=== PATIENT | male | born 1960 | race Hispanic/Latino ===

== ENCOUNTER 2017-07-07 16:15 | Emergency (ER) | payer OTHER, SELFPAY ==
[~2017-07-07 16:15] MED LIST: BUSP15 PO; LEVO500T2 PO; LISI-613 PO; MULT-603 PO; PRAV20TA4 PO; TRAZ-144 PO
[2017-07-07 17:20] LABS: BASOPHILS % (AUTO) 0.4 % (0.0-5.0); LYMPHOCYTES % (AUTO) 22.2 % (21.0-51.0); MEAN CORPUSCULAR HEMOGLOBIN 32.4 pg (27.0-33.0); MEAN CORPUSCULAR HGB CONC 34.8 g/dL (32.0-36.0); MEAN CORPUSCULAR VOLUME 93.1 fL (79-99); MONOCYTES % (AUTO) 10.1 % (3.0-13.0); NEUTROPHILS % (AUTO) 64.3 % (40.0-77.0); PLATELET COUNT (AUTO) 202 K/uL (130-400); RED BLOOD CELL COUNT(AUTO) 4.51 MIL/uL (4.50-6.20); RED CELL DISTRIBUTION WIDTH 14.1 % (11.0-15.5); WHITE BLOOD COUNT (AUTO) 9.3 K/uL (4.8-10.8)
[2017-07-07 17:31] LABS: POTASSIUM 3.7 mmol/L (3.5-5.1)
[2017-07-07 17:35] LABS: ALBUMIN 3.5 g/dL (3.5-5.0); BILIRUBIN,TOTAL 0.3 mg/dL (0.2-1.0); CRP QUANTITATIVE 3.2 mg/L (0.00-9.0); TOTAL PROTEIN, SERUM 7.5 g/dL (6.0-8.3)
== END 2017-07-07 19:32 | disposition home or self-care (01) ==
LOC: EDH 16:15
DX: L30.9 Dermatitis, unspecified (principal); L03.116 Cellulitis of left lower limb; L03.115 Cellulitis of right lower limb; E78.5 Hyperlipidemia, unspecified; I10 Essential (primary) hypertension; Z88.0 Allergy status to penicillin; Z72.0 Tobacco use
CPT/HCPCS: 36415; 80053; 85025; 86141; 93925; 93970

== ENCOUNTER 2024-12-05 13:42 | Emergency (ER) | payer OTHER ==
[~2024-12-05] VITALS: Ht 177.8 cm; Wt 72.6 kg
[~2024-12-05 13:42] MED LIST changes: -LISI-613 PO; +LISI20TA24 PO; -PRAV20TA4 PO; +PRAV20TA59 PO; -TRAZ-144 PO; +TRAZ-185 PO
--- NOTE | 2024-12-05 13:59 | ERN ---
General Chief Complaint: Lower Extremity Pain/Injury Stated Complaint: RIGHT LEG SWELLING Time Seen by MD: 13:54 History of Present Illness Initial Comments Mr. Tian is a 64-year-old male who presented to the ED via private vehicle with complaints of bilateral leg pain. Patient states that the pain started on Sunday and progressed in severity, it now encompasses entire leg on both sides. He denies trauma to his legs. He states that he was told by his primary care physician that he has venous insufficiency. He states that he had similar episodes in the past twice. He states that he has a chronic history of pedal edema and venous insufficiency in the past. He has a past medical history of diabetes mellitus for which she was on metformin for a while, now in remission. Allergies: Coded Allergies: No Allergy Information Available (Verified Allergy, Unknown, 02/25/16) Penicillins (Unverified Allergy, Unknown, 12/05/24) Uncoded Allergies: PCN (Allergy, Intermediate, 02/25/16) RASH Home Meds Active Scripts Clindamycin HCl (Clindamycin HCl) 75 Mg Capsule, 1 CAP PO TID for Cellulitis for 10 Days, #30 CAP 0 Refills Prov:ARA AQUINO MD 12/05/24 Levofloxacin (Levaquin) 500 Mg Tablet, 500 MG PO DAILY, #5 TAB Prov:EMORY BRANNON MD 02/28/16 Reported Medications Buspirone HCl (Buspar) 15 Mg Tab, 15 MG PO BID, TAB 02/27/16 Multivitamin (Men's Multi-Vitamin) 1 Each Tablet, 1 EACH PO DAILY, TAB 02/27/16 Trazodone HCl (Trazodone HCl) 50 Mg Tablet, 50 MG PO HS, TAB 02/27/16 Pravastatin Sodium (Pravastatin Sodium) 20 Mg Tablet, 20 MG PO HS, TAB 02/27/16 Lisinopril (Lisinopril) 20 Mg Tablet, 20 MG PO DAILY, TAB 02/27/16 ROS Dictation ROS Dictation CONSTITUTIONAL: No chills, no fever, no weakness, no diaphoresis, no malaise. HEAD/FACE: No signs of trauma. EENT: No eye pain, no blurred vision, no tearing, no double vision, no ear pain, no ear discharge, no nose pain, no nasal congestion, no throat pain, no throat swelling, no mouth pain. RESPIRATORY: No cough, no orthopnea, no SOB, no stridor, no wheezing. CARDIOVASCULAR: No chest pain, no edema, no palpitations, no syncope. GASTROINTESTINAL/ABDOMINAL: No abdominal pain, no constipation, no diarrhea, no nausea, no vomiting. GENITOURINARY: No abnormal discharge, no dysuria, no frequent urination, no hematuria. No complaints of pain in the genitals. MUSCULOSKELETAL: No back pain, no gout, no joint pain, no joint swelling, bilateral lower extremity muscle pain, bilateral leg swelling, no muscle stiffness, no neck pain. INTEGUMENTARY: No change in color, no change in hair/nails, no dryness, no lesion, no lumps, no rash. NEUROLOGICAL/PSYCH: No anxiety, not depressed, no emotional problem, no headache, no numbness, no pre-existing deficit, no history of seizures, no tremors, no weakness. HEMATOLOGIC/LYMPHATIC: Not anemic, no history of blood clots, no apparent bleeding, no bruising, glands not swollen. All Systems Negative, Except as Noted. Physical Exam Physical Exam Dictation Physical Exam Dictation VITAL SIGNS: Reviewed. GENERAL APPEARANCE: Alert, oriented x3 HEAD AND FACE: Non-traumatic. EYES: PERRL, pink conjunctivas, eyelid no trauma, anterior chamber clear. EARS: Pinnas intact and no signs of trauma or erythema. Ear canals clear and no discharge. TMs no erythema. NOSE: No discharge, no bleeding. OROPHARYNX: Mouth normal, teeth no caries, tongue pink. Pharynx clear, no erythema. Tonsils no exudates, no abscesses noted. Mucous membrane moist. NECK: Supple, non-tender, no thyromegaly, no masses, no JVD, no bruits. BREAST: Deferred. CHEST: No tenderness, no crepitus, no paradoxical movement, no retractions. LUNGS: Clear, well-ventilated, symmetric, no rales, no wheezing, no rhonchi, no stridor, good breath sounds bilaterally. HEART: Regular rate, regular rhythm, no murmur, no gallops. VASCULAR: No peripheral edema. ABDOMEN: Soft, positive bowel sounds, nondistended, no guarding, nontender, no rebound, no masses no hepatomegaly, no splenomegaly, no Simms's sign, no hernias. RECTAL: Deferred. GENITAL: Deferred. NEUROLOGICAL: Normal speech, gross motor function intact, gross sensory function intact. MUSCULOSKELETAL: Neck nontender, full range of motion, back nontender, full range of motion. EXTREMITIES: Tender, edematous, erythematous, and scaly bilateral lower extremities with local rise in temperature, full range of motion. SKIN: Color pink, dry, no turgor, no rash, no lacerations, no abrasions, no contusions. LYMPHATICS: Deferred. Results Laboratory and Microbiology Lab and Micro Result Laboratory Tests Test 12/05/24 15:18 White Blood Count 10.8 K/uL (4.8-10.8) Red Blood Count 4.43 MIL/uL (4.50-6.20) L Hemoglobin 14.3 g/dL (14.0-18.0) Hematocrit 42.3 % (42-54) Mean Corpuscular Volume 95.5 fL (79-99) Mean Corpuscular Hemoglobin 32.3 pg (27.0-33.0) Mean Corpuscular Hemoglobin Concent 33.8 g/dL (32.0-36.0) Red Cell Distribution Width 13.3 % (11.0-15.5) Platelet Count 186 K/uL (130-400) Mean Platelet Volume 9.3 fL (7.5-10.5) Immature Granulocyte % (Auto) 0.5 % (0-1) Neutrophils (%) (Auto) 73.8 % (40.0-77.0) Lymphocytes (%) (Auto) 12.5 % (21.0-51.0) L Monocytes (%) (Auto) 7.4 % (3.0-13.0) Eosinophils (%) (Auto) 5.2 % (0.0-8.0) Basophils (%) (Auto) 0.6 % (0.0-5.0) Neutrophils # (Auto) 8.0 K/uL (1.8-7.7) H Lymphocytes # (Auto) 1.4 K/uL (1.0-4.8) Monocytes # (Auto) 0.8 K/uL (0.1-1.0) Eosinophils # (Auto) 0.56 K/uL (0.00-0.70) Basophils # (Auto) 0.06 K/uL (0.00-0.20) Absolute Immature Granulocyte (auto 0.05 K/uL (0-1) Nucleated Red Blood Cells 0.0 % (0.0-0.19) Sodium Level 136 mmol/L (136-145) Potassium Level 3.7 mmol/L (3.5-5.1) Chloride Level 101 mmol/L (101-111) Carbon Dioxide Level 31 mmol/L (21-32) Blood Urea Nitrogen 6 mg/dL (7-18) L Creatinine 0.6 mg/dL (0.5-1.3) Glomerular Filtration Rate Calc 107 mL/min (>90) Random Glucose 103 mg/dL (70-105) Total Calcium 9.2 mg/dL (8.5-10.1) MDM Chief complaint: Patient presented to the emergency department with bilateral lower extremity edema and swelling up to the thighs. Past medical history: Patient states that he has a past medical history of diabetes mellitus for which she used to take metformin and chronic venous insufficiency. Vitals: Vitals are unremarkable except for blood pressure of 145/67,. Physical examination: Physical examination revealed edema, erythema, and scaly lower extremities bilaterally with local rise in temperature. Review of systems: Review of systems was remarkable for bilateral lower extr emity pain and edema. Laboratory results: Laboratory results were unremarkable Imaging results: Venous duplex ultrasound did not reveal any deep vein thrombosis or superficial venous insufficiency. Differential: Pedal edema, cellulitis, stasis dermatitis, erysipelas. Assessment and plan: Based on the history, physical examination we performed a duplex venous ultrasound of bilateral extremities to rule out deep vein thrombosis or venous insufficiency. The ultrasound revealed no significant abnormalities with no deep vein thrombosis or superficial venous insufficiency except for severe lymphadenopathy in the groins. Laboratory evaluation did not reveal any significant abnormalities. The patient initially stated that his PCP told him that his veins were blocked but upon further inquiry he stated that he was evaluated for his and was told that there were no significant abnormalities with his venous return.. Based on our evaluation in the ED we are diagnosing the patient with cellulitis and we will be discharging him on antibiotics. ED Course Orders Procedure Category Date Status Time Us Venous Doppler US 12/05/24 Taken Bilateral 14:08 Cbc With Differential LAB 12/05/24 Complete 14:08 Basic Metabolic Panel LAB 12/05/24 Complete 14:08 Acetaminophen 500mg PHA 12/05/24 Complete Tab (Tylenol 500mg T 14:30 Current Medications Medications (Trade) Dose Ordered Sig/Lyndsay Route PRN Reason Start Time Stop Time Status Last Admin Dose Admin Acetaminophen (TYLenol 500MG TAB) 500 mg ONCE ONCE PO 12/05/24 14:30 12/05/24 14:31 DC Vital Signs Date Time Temp Pulse Resp B/P (MAP) Pulse Ox O2 Delivery O2 Flow Rate FiO2 12/05/24 14:11 96.6 66 19 145/67 99 Room Air 0 DX & DISP Disposition: Discharge Departure Impression: Primary Impression: Pedal edema Additional Impressions: Venous stasis, Cellulitis Condition: Stable Scripts Clindamycin HCl (Clindamycin HCl) 300 Mg Capsule 1 CAP PO TID for 7 Days, #21 CAP 0 Refills Prov: YODIT MEJIA MD 12/05/24 Clindamycin HCl (Clindamycin HCl) 75 Mg Capsule 1 CAP PO TID for Cellulitis for 10 Days, #30 CAP 0 Refills Prov: ARA AQUINO MD 12/05/24 Additional Instructions: FOLLOW-UP WITH PRIMARY CARE PROVIDER IN 1 TO 2 DAYS. TAKE MEDICATIONS DIRECTED HERE IN THE EMERGENCY ROOM. OKAY TO CONTINUE HOME MEDICATIONS UNLESS OTHERWISE DISCUSSED DURING YOUR VISIT IN THE EMERGENCY ROOM TODAY. RETURN TO YOUR NEAREST EMERGENCY ROOM IF SYMPTOMS WORSEN OR IF THERE IS NO IMPROVEMENT. CALL 911 IF YOU NEED IMMEDIATE ASSISTANCE. TAKE TYLENOL [id number] NEEDED AND IF NO CONTRAINDICATIONS ARE PRESENT. INCREASE ORAL HYDRATION. IF A WOUND CULTURE OR URINE CULTURE WAS ORDERED HERE IN THE EMERGENCY ROOM DEPARTMENT PLEASE FOLLOW-UP WITH PRIMARY CARE PROVIDER AND ADVISE THEM TO GET REPORTS FROM OUR FACILITY. IF YOU HAD ANY MUSA WRAP/SPLINTS THAT WERE APPLIED HERE, PLEASE DO NOT REMOVE THEM UNTIL YOU SEE YOUR PRIMARY CARE OR SPECIALTY. Referrals: FELIBERTO NEWTON MD (PCP) Time of Disposition: 16:15 ARA AQUINO MD Dec 05, 2024 13:59 YODIT MEJIA MD Dec 05, 2024 16:16
[2024-12-05 15:26] LABS: IMMATURE GRANULOCYTE ABSOLUTE 0.05 K/uL (0-1); NUCLEATED RED BLOOD CELLS 0.0 % (0.0-0.19); PLATELET COUNT (AUTO) 186 K/uL (130-400); RED BLOOD CELL COUNT(AUTO) 4.43 MIL/uL (4.50-6.20); RED CELL DISTRIBUTION WIDTH 13.3 % (11.0-15.5); WHITE BLOOD COUNT (AUTO) 10.8 K/uL (4.8-10.8)
[2024-12-05 15:37] LABS: CREATININE 0.6 mg/dL (0.5-1.3); GLOMERULAR FILTR. RATE CALC 107.0 mL/min (>90); GLUCOSE,RANDOM 103.0 mg/dL (70-105); SODIUM SERUM 136.0 mmol/L (136-145); UREA NITROGEN, BLOOD 6.0 mg/dL (7-18)
[2024-12-05] MEDS ORDERED: CLIN75CA3 PO (16:01)
[2024-12-05] MEDS ORDERED: CLIN-141 PO (16:16)
--- NOTE | 2024-12-05 17:34 | NUR ---
READY TO DC
--- NOTE | 2024-12-05 17:45 | NUR ---
PT TO BACK [id number]
[2024-12-05 17:49] VITALS: BP 145/65; PULSE 65; RESP 16; TEMP 98.1; O2SAT 98
--- NOTE | 2024-12-09 20:44 | HMCIMG ---
EXAMINATION: SPECTRAL DOPPLER ULTRASOUND EXAMINATION OF THE BILATERAL LOWER EXTREMITY VEINS. CLINICAL HISTORY: Venous insufficiency. COMPARISON: Duplex lower extremity veins dated 07/12/2017. TECHNIQUE: Real-time ultrasound scan of the veins of the bilateral lower extremity with color Doppler flow, spectral waveform analysis and compression. FINDINGS: DEEP VEINS: The common femoral, superficial femoral, and popliteal veins are echolucent and compressible. There is normal color Doppler flow throughout. The visualized calf veins appear patent. The right proximal and mid superficial femoral vein is partially collapsed with reduced flow. SUPERFICIAL VEINS: The greater saphenous veins are patent and compressible. SOFT TISSUES: No popliteal fossa cyst. There are lymph nodes that measure 2.2 x 1.7 cm, 1.2 x 0.9 cm, 1.4 x 1.1 cm, 2.0 x 0.9 cm in the right groin and 2.5 x 1.3 cm, 1.4 x 1.1 cm, 1.2 x 0.8 cm, 1.8 x 1.1 cm, 1.0 x 0.7 cm, 2.3 x 1.0 cm in the left groin. Hilar echoes are maintained. IMPRESSION: No deep venous thrombosis evident in the bilateral lower extremity. No superficial thrombophlebitis in the bilateral lower extremity. No reflux. Bilateral inguinal lymphadenopathy. /[facility]
== END 2024-12-05 18:05 | disposition home or self-care (01) ==
LOC: EDH 13:42
DX: I87.8 Other specified disorders of veins (principal); R60.9 Edema, unspecified; L03.116 Cellulitis of left lower limb; L03.115 Cellulitis of right lower limb; E11.9 Type 2 diabetes mellitus without complications; I87.2 Venous insufficiency (chronic) (peripheral); Z88.0 Allergy status to penicillin; Z79.899 Other long term (current) drug therapy
CPT/HCPCS: 36415; 80048; 85025; 93970; 99284